=== PATIENT | female | born 1965 | race Caucasian/White ===

== ENCOUNTER 2022-08-09 17:56 | Emergency (ER) | payer BC, OTHER ==
[~2022-08-09] VITALS: Ht 170.2 cm; Wt 65.8 kg
[2022-08-09 18:26] VITALS: BP 143/89
--- NOTE | 2022-08-09 19:24 | NUR ---
XRAY AT BEDSIDE
--- NOTE | 2022-08-09 20:08 | NUR ---
Patient discharged to home in stable condition. Written and verbal after care instructions given. Patient verbalizes understanding of instruction.
== END 2022-08-09 20:08 | disposition home or self-care (01) ==
LOC: ER 18:12
DX: S82.51XA Displaced fracture of medial malleolus of right tibia, initial encounter for closed fracture (principal); I10 Essential (primary) hypertension; Z98.890 Other specified postprocedural states; Z88.1 Allergy status to other antibiotic agents; Z88.8 Allergy status to other drugs, medicaments and biological substances; X50.1XXA Overexertion from prolonged static or awkward postures, initial encounter; Y93.89 Activity, other specified; Y92.89 Other specified places as the place of occurrence of the external cause; Y99.8 Other external cause status
CPT/HCPCS: 73590-TC; 73610-TC; 73630-TC

== ENCOUNTER 2023-11-26 17:00 | Emergency (ER) | payer BC ==
[~2023-11-26] VITALS: Ht 170.2 cm; Wt 77.1 kg
[2023-11-26] MEDS: IV NS 0.9% 500 ML BAG IV ONE (17:30)
[2023-11-26] MEDS: ACETAMINOPHEN ES 500 MG TABLET PO ONE (17:32)
[2023-11-26] MEDS ORDERED: diphenhydrAMINE HCL 50 MG/ML VIAL ONE (17:35)
[2023-11-26] MEDS ORDERED: ACETAMINOPHEN ES 500 MG TABLET ONE (17:35)
[2023-11-26] MEDS ORDERED: METOCLOPRAMIDE HCL 10 MG/2 ML VIAL ONE (17:35)
[2023-11-26 17:38] LABS: BASOPHILS % (AUTO) 1.4 % (0.0-2.0); EOSINOPHILS % (AUTO) 0.9 % (0.0-6.0); HEMATOCRIT 38 % (33-45); HEMOGLOBIN 12.9 g/dL (11.5-14.8); MEAN CORPUSCULAR HEMOGLOBIN 32 PG (26.0-33.0); MEAN CORPUSCULAR HGB CONC 34 g/dl (31.0-36.0); MEAN CORPUSCULAR VOLUME 95 fL (82-100); MONOCYTES # (AUTO) 0.2 K/uL (0.1-1.30); MONOCYTES % (AUTO) 6.4 % (2.0-12.0); NEUTROPHILS # (AUTO) 1.9 K/uL (1.8-8.9); NEUTROPHILS % (AUTO) 59.3 % (43.0-81.0); PLATELET COUNT (AUTO) 311 K/uL (150-450); RED CELL DISTRIBUTION WIDTH 12.8 % (11.5-15.0); WHITE BLOOD COUNT (AUTO) 3.2 K/uL (4.3-11.0)
[2023-11-26] MEDS: diphenhydrAMINE HCL 50 MG/ML VIAL IV ONE (17:38)
[2023-11-26] MEDS: METOCLOPRAMIDE HCL 10 MG/2 ML VIAL IV ONE (17:40)
[2023-11-26 17:50] LABS: CALCIUM, SERUM 9.6 mg/dL (8.5-10.1); CARBON DIOXIDE 27 mmol/L (21-32); CHLORIDE 86 mmol/L (98-107); CREATININE 0.7 mg/dL (0.6-1.3); GLUCOSE 137 mg/dL (74-106); POTASSIUM 3.4 mmol/L (3.5-5.1); SODIUM SERUM 124 mmol/L (136-145); UREA NITROGEN, BLOOD 8 mg/dL (7-18)
[2023-11-26 18:05] LABS: ALANINE AMINOTRANSFERASE 139 U/L (12-78); ALKALINE PHOSPHATASE 104 U/L (46-116); ASPARTATE AMINOTRANSFERASE 52 U/L (15-37); BILIRUBIN,DIRECT 0.1 mg/dL (0.0-0.2); BILIRUBIN,TOTAL 0.3 mg/dL (0.2-1.0); NT-PRO BNP 37 pg/mL (0-125); TOTAL PROTEIN, SERUM 7.3 g/dL (6.4-8.2)
[2023-11-26] MEDS ORDERED: METO-295 PO (20:23)
[2023-11-26 20:49] VITALS: BP 134/88; TEMP 98; O2SAT 95
== END 2023-11-26 20:50 | disposition home or self-care (01) ==
LOC: ER 17:05
DX: R51.9 Headache, unspecified (principal); I10 Essential (primary) hypertension; Z88.0 Allergy status to penicillin; Z88.8 Allergy status to other drugs, medicaments and biological substances
CPT/HCPCS: 99285; 96374; 70450; 71045; 96361; 96375; 93005; 85025; 80048; 80076; 36415; 84484; 83880; J1200; J2765; J7030